=== PATIENT | female | born 1980 | race Caucasian/White ===

== ENCOUNTER 2016-04-05 17:53 | Emergency (ER) | payer OTHER ==
[~2016-04-05] VITALS: Ht 177.8 cm; Wt 72.6 kg
[~2016-04-05 17:53] MED LIST: ACETAMINOPHEN-1 EAC1 PO; APAP500; ASPIRIN81 M2 PO; ATIVAN1 MG PO; CELEXA 20 MG TA20 MG; CELEXA20 MG PO; CELEXA40 MG PO; CHLORDIAZEPOXID10 MG PO; CYMBALTA60 MG PO; FLEXERIL PO; HYDROCODON-ACE1 EAC7 PO; HYDROCODONE-AC474 ML PO; HYDROCODONE-AP1 EAC6 PO; IBUPROFEN 200200 M1 PO; IBUPROFEN 600600 M1 PO; IBUPROFEN 800800 MG PO; MOBIC15 MG PO; MS CONTIN15 MG PO; MULTI-VITAMIN1 EAC5 PO; NAPROSYN500 MG PO; NEURONTIN 300300 M1 PO; NORCO 5-325 TA1 EACH PO; NORCO 7.5-3251 EACH PO; NORFLEX100 MG PO; PENICILLIN VK500 M1 PO; PERCOCET 5-3251 EACH PO; PHENERGAN 25 MG25 M1 PO; REVIA 50 MG TAB50 M1 GT; REVIA 50 MG TAB50 MG PO; SEROQUEL 50 MG50 MG PO; SEROQUEL400 MG PO; TRINATE TABLET1 TAB PO; VENTOLIN HFA 1818 GM INH; VISTARIL 25 MG25 M1 PO; VITAMIN B-1100 M1 PO; XANAX 0.5 MG0.5 M1 PO; XANAX 1 MG TABLE1 MG PO; XANAX XR0.5 MG PO; ZOFRAN ODT4 MG PO; ZOFRAN4 MG PO; [UNRECOGNIZED DRUG - OTHER] PO
[2016-04-05] MEDS ORDERED: NORCO 5-325 TA1 EACH PO (19:59)
[2016-04-05] MEDS ORDERED: PHENERGAN 25 MG25 M1 PO (19:59)
[2016-04-05] MEDS ORDERED: BACLOFEN 10MG T10 MG PO (19:59)
[2016-04-05] MEDS ORDERED: NAPROSYN500 MG PO (19:59)
== END 2016-04-05 20:06 | disposition home or self-care (01) ==
LOC: ER 17:53
DX: S06.0X9A Concussion with loss of consciousness of unspecified duration, initial encounter (principal); S40.021A Contusion of right upper arm, initial encounter; Z98.890 Other specified postprocedural states; F17.210 Nicotine dependence, cigarettes, uncomplicated; F10.99 Alcohol use, unspecified with unspecified alcohol-induced disorder; W01.198A Fall on same level from slipping, tripping and stumbling with subsequent striking against other object, initial encounter; Y93.89 Activity, other specified; Y92.89 Other specified places as the place of occurrence of the external cause; Y99.8 Other external cause status

== ENCOUNTER 2016-10-01 20:01 | Emergency (ER) | payer OTHER ==
[~2016-10-01] VITALS: Ht 177.8 cm; Wt 83.0 kg
[~2016-10-01 20:01] MED LIST changes: +BACLOFEN 10MG T10 MG PO
[2016-10-01] MEDS ORDERED: NORCO 5-325 TA1 EACH PO (21:47)
== END 2016-10-01 21:47 | disposition home or self-care (01) ==
LOC: ER 20:01
DX: S39.012A Strain of muscle, fascia and tendon of lower back, initial encounter (principal); F41.9 Anxiety disorder, unspecified; F31.9 Bipolar disorder, unspecified; F17.210 Nicotine dependence, cigarettes, uncomplicated; W01.0XXA Fall on same level from slipping, tripping and stumbling without subsequent striking against object, initial encounter; Y93.89 Activity, other specified; Y92.89 Other specified places as the place of occurrence of the external cause; Y99.8 Other external cause status

== ENCOUNTER 2017-03-28 17:27 | Emergency (ER) | payer OTHER ==
[~2017-03-28] VITALS: Ht 177.8 cm; Wt 81.7 kg
[~2017-03-28 17:27] MED LIST changes: +CYCLOBENZAPRINE5 MG PO; +PREDNISONE 20 M20 MG PO; +SENNA8.6 MG PO
[2017-03-28] MEDS ORDERED: IBUPROFEN 600600 M1 PO (18:28)
[2017-03-28] MEDS ORDERED: ACETAMINOPHEN-1 EAC1 PO (18:28)
[2017-03-28 18:39] VITALS: BP 115/84
== END 2017-03-28 18:40 | disposition home or self-care (01) ==
LOC: ER 17:27
DX: T25.222A Burn of second degree of left foot, initial encounter (principal); T25.121A Burn of first degree of right foot, initial encounter; T31.0 Burns involving less than 10% of body surface; F41.9 Anxiety disorder, unspecified; F31.9 Bipolar disorder, unspecified; F17.210 Nicotine dependence, cigarettes, uncomplicated; X15.0XXA Contact with hot stove (kitchen), initial encounter; Y93.G3 Activity, cooking and baking; Y92.090 Kitchen in other non-institutional residence as the place of occurrence of the external cause; Y99.8 Other external cause status

== ENCOUNTER 2018-07-05 21:01 | Emergency (ER) | payer OTHER ==
[~2018-07-05] VITALS: Ht 177.8 cm; Wt 74.8 kg
[2018-07-06 00:48] VITALS: BP 106/72
== END 2018-07-06 00:51 | disposition home or self-care (01) ==
LOC: ER 21:01
DX: S09.8XXA Other specified injuries of head, initial encounter (principal); F17.210 Nicotine dependence, cigarettes, uncomplicated; F41.9 Anxiety disorder, unspecified; F31.9 Bipolar disorder, unspecified; Z98.890 Other specified postprocedural states; W10.9XXA Fall (on) (from) unspecified stairs and steps, initial encounter; Y92.89 Other specified places as the place of occurrence of the external cause; Y93.89 Activity, other specified; Y99.8 Other external cause status